=== PATIENT | female | born 1990 | race Caucasian/White ===

== ENCOUNTER 2016-06-18 05:06 | Day surgery (SDC) | payer BC ==
[~2016-06-18] VITALS: Ht 170.2 cm; Wt 80.0 kg
[~2016-06-18 05:06] MED LIST: ALLEGRA ALLERGY60 MG PO; SPRINTEC1 EACH PO; TYLENOL EXTRA500 MG PO
[2016-06-18 05:55] VITALS: BP 126/66
[2016-06-18 08:57] VITALS: BP 120/70
[2016-06-18 09:50] VITALS: BP 123/82
== END 2016-06-18 09:50 | disposition home or self-care (01) ==
LOC: SDC 05:06
DX: D06.7 Carcinoma in situ of other parts of cervix (principal); Z80.41 Family history of malignant neoplasm of ovary; Z80.3 Family history of malignant neoplasm of breast; Z82.49 Family history of ischemic heart disease and other diseases of the circulatory system; Z83.3 Family history of diabetes mellitus; Z88.0 Allergy status to penicillin
CPT/HCPCS: 88305; 88307; J1580; J2405; J3010; J7050; S0030